=== PATIENT | female | born 1995 | race Caucasian/White ===

== ENCOUNTER 2020-06-10 07:03 | Observation (INO) ==
[2020-06-10 07:58] LABS: Basophils # 0.1 10*3/uL (0.0-0.2); Basophils % 0.7 % (0.0-0.8); Eosinophils # 0.2 10*3/uL (0.0-0.87); Eosinophils % 2.6 % (0.00-10.9); Hematocrit 40.7 VOL% (35.7-47.0); Hemoglobin 13.9 GM/DL (12.0-16.0); Immature Granulocytes % 0.5 %; Immature Granulocytes Absolute 0.04 #; Lymphocytes # 2.2 10*3/uL (1.4-4.0); Lymphocytes % 29.1 % (21.3-54.2); Mean Corpuscular HGB Conc 34.2 GM/DL (32-36); Mean Corpuscular Volume 95.5 FL (87-102); Neutrophils % 63.1 % (38.7-73.9); Platelet Count 323 T/CUMM (130-400); Red Blood Count 4.26 MC/CUMM (3.8-5.5); Red Cell Distribution Width 11.4 % (9.3-17.3); White Blood Count 7.6 T/CUMM (4-12)
[2020-06-10] MEDS ORDERED: levETIRAcetam 500 MG/5 ML VIAL IV ONE (08:18)
[2020-06-10 08:31] LABS: Alanine Aminotransferase 39 U/L (13-56); Albumin 3.6 G/DL (3.4-5.0); Alkaline Phosphatase 103 U/L (45-117); Aspartate Amino Transferase 22 U/L (0-37); Bilirubin,Total < 0.39 MG/DL (0.2-1.0); Blood Urea Nitrogen 14 MG/DL (7-18); Calcium 9.4 MG/DL (8.5-10.1); Carbon Dioxide 20 MMOL/L (21-32); Estimated Glom Filtration Rate 103 ML/MIN; Glucose 121 MG/DL (74-106); Potassium 3.8 MMOL/L (3.5-5.1); Sodium 136 MMOL/L (136-145); Total Protein 8.1 G/DL (5.0-7.5)
[2020-06-10 08:35] LABS: Barbiturates Screen,Urine Negative (Negative); Benzodiazepines Screen,Urine Negative (Negative); Cannabinoid Screen,Urine Negative (Negative); Opiate Screen,Urine Negative (Negative); Phencyclidine Screen,Urine Negative (Negative)
[2020-06-10 08:40] LABS: Bilirubin,Urine Negative (Negative); Blood, Urine Small mg/dL (Negative); Glucose,Urine (UA) Negative (Negative); Hyaline Casts,Urine 1 /LPF (0-3); Ketones,Urine 5 mg/dL (Negative); Mucus,Urine Moderate /LPF (Occasional); Nitrite,Urine Negative (Negative); Protein,Urine 30 MG/DL; RBC,Urine 1 /HPF (0-4); Squamous Epithelial Cell,Urine Occasional /HPF (0-10); Urine Appearance CLEAR (Clear); Urine Color Yellow (Yellow); Urine Specific Gravity 1.023 (1.001-1.035); Urine Urobilinogen < 2.0 EU/DL (0.2-1.0); WBC,Urine 1 /HPF (0-6)
[2020-06-10] MEDS ORDERED: ONDANSETRON 4 MG/2 ML VIAL IV PRN (08:56)
[2020-06-10] MEDS ORDERED: GLUCAGON 1 MG VIAL IM PRN (08:56)
[2020-06-10] MEDS ORDERED: DEXTROSE 50% 25 GM/50 ML VIAL IV PRN (08:56)
[2020-06-10] MEDS ORDERED: ACETAMINOPHEN 325 MG TABLET PO PRN (08:56)
[2020-06-10 09:26] LABS: Thyroid Stimulating Hormone 3.8 uIU/ml (0.358-3.74)
[2020-06-10] MEDS ORDERED: LORazepam 2 MG/1 ML VIAL IV PRN (11:26)
[2020-06-10] MEDS: ENOXAPARIN 40 MG/0.4 ML SYRINGE SUBCUT SCH (11:35)
[2020-06-10] MEDS: SODIUM CHLORIDE 0.9% 1,000 ML IV SCH ×2 (11:35→21:47)
[2020-06-10] MEDS: lamoTRIgine 25 MG TABLET PO SCH (16:44)
[2020-06-10] MEDS ORDERED: levETIRAcetam 500 MG TABLET PO SCH (21:00)
[2020-06-11 04:21] LABS: Calcium 8.2 MG/DL (8.5-10.1); Osmolality,Calculated 275.5 MOS/KG (273-304)
[2020-06-11 04:27] LABS: Basophils % 0.5 % (0.0-0.8); Eosinophils # 0.3 10*3/uL (0.0-0.87); Hematocrit 33.3 VOL% (35.7-47.0); Immature Granulocytes % 0.4 %; Immature Granulocytes Absolute 0.03 #; Lymphocytes # 3.3 10*3/uL (1.4-4.0); Lymphocytes % 39.6 % (21.3-54.2); Mean Corpuscular HGB Conc 35.4 GM/DL (32-36); Mean Corpuscular Volume 94.6 FL (87-102); Mean Platelet Volume 9.2 FL (9.6-12.0); Monocytes % 5.4 % (1.7-12.7); Neutrophils % 51.1 % (38.7-73.9); Platelet Count 277 T/CUMM (130-400); Red Blood Count 3.52 MC/CUMM (3.8-5.5); Red Cell Distribution Width 11.4 % (9.3-17.3); White Blood Count 8.2 T/CUMM (4-12)
[2020-06-11 04:34] LABS: Hemoglobin 11.8 GM/DL (12.0-16.0)
[2020-06-11] MEDS ORDERED: FOLIC ACID 1 MG TABLET PO SCH (09:00)
[2020-06-11] MEDS: ENOXAPARIN 40 MG/0.4 ML SYRINGE SUBCUT SCH (10:04)
[2020-06-11] MEDS: lamoTRIgine 25 MG TABLET PO SCH (10:04)
[2020-06-11 14:09] VITALS: BP 111/63
== END 2020-06-11 13:25 | disposition home or self-care (01) ==
LOC: N.EDINP 07:03 → N.ED 07:03 → N.4E 10:44
PROVIDERS: ADMIT Internal Medicine; ATTEND Internal Medicine